=== PATIENT | male | born 1965 | race Caucasian/White ===

== ENCOUNTER 2019-03-27 06:45 | Inpatient (IN) ==
[2019-03-23 13:02] LABS: Basophils % 0.6 % (0.0-0.8); Eosinophils # 0.1 10*3/uL (0.0-0.87); Eosinophils % 1.9 % (0.00-10.9); Hematocrit 38.3 VOL% (42.0-52.0); Hemoglobin 13.2 GM/DL (14.0-18.0); Immature Granulocytes % 0.4 %; Immature Granulocytes Absolute 0.03 #; Lymphocytes # 2.3 10*3/uL (1.4-4.0); Lymphocytes % 32.4 % (21.2-54.2); Mean Corpuscular HGB Conc 34.5 GM/DL (32-36); Mean Corpuscular Volume 88.9 FL (87-102); Mean Platelet Volume 9.5 FL (9.6-12.0); Monocytes % 9.8 % (1.7-12.7); Neutrophils % 54.9 % (38.7-73.9); Platelet Count 235 T/CUMM (130-400); Red Blood Count 4.31 MC/CUMM (3.8-5.5); Red Cell Distribution Width 11.8 % (9.3-17.3)
[2019-03-23 13:15] LABS: Calcium 9.5 MG/DL (8.5-10.1); Osmolality,Calculated 288.1 MOS/KG (273-304)
[2019-03-23 13:16] LABS: INR 0.9; PT Patient Result 9.7 SECS; Partial Thromboplastin Time 26.6 SECS (0-40)
[~2019-03-27 06:45] MED LIST: DIAZEPAM 5 MG TABLET PO ONE; FAMOTIDINE 20 MG TABLET PO ONE
[2019-03-27] MEDS ORDERED: ceFAZolin 1,000 MG in SYRINGE 1 EACH IV ONE (08:00)
[2019-03-27] MEDS ORDERED: DIAZEPAM 5 MG TABLET ONE (08:02)
[2019-03-27] MEDS ORDERED: ceFAZolin 1,000 MG VIAL ONE (08:02)
[2019-03-27] MEDS ORDERED: FAMOTIDINE 20 MG TABLET ONE (08:02)
[2019-03-27] MEDS ORDERED: ROPIVACAINE 0.5% 30 ML VIAL ONE (08:05)
[2019-03-27] MEDS ORDERED: HEPARIN/NACL 0.9% 2 UNITS/ML 500 ML IV ONE (08:41)
[2019-03-27] MEDS ORDERED: PHENYLEPHRINE DRIP 20 MG/250 ML PREMIX IV ONE (08:41)
[2019-03-27] MEDS ORDERED: NITROGLYCERIN DRIP 50 MG/250 ML BOTTLE IV ONE (08:41)
[2019-03-27] MEDS ORDERED: HEPARIN 5,000 UNIT/1 ML VIAL ONE (08:57)
[2019-03-27] MEDS ORDERED: TISSUE ADHESIVE 1 EACH APPLICATOR TOP ONE (08:57)
[2019-03-27] MEDS ORDERED: LIDOCAINE 1% 20 ML VIAL ONE (08:57)
[2019-03-27] MEDS ORDERED: LACTATED RINGERS 1,000 ML IV SCH (09:00)
[2019-03-27] MEDS ORDERED: PROMETHAZINE 25 MG/1 ML VIAL IM PRN (11:08)
[2019-03-27] MEDS ORDERED: ONDANSETRON 4 MG/2 ML VIAL IV PRN (11:08)
[2019-03-27] MEDS ORDERED: HYDROmorphone 2 MG/1 ML VIAL IV PRN ×2 (11:08)
[2019-03-27] MEDS ORDERED: DEXTROSE 50% 25 GM/50 ML VIAL IV PRN (11:08)
[2019-03-27] MEDS ORDERED: GLUCAGON 1 MG VIAL IM PRN (11:08)
[2019-03-27] MEDS ORDERED: NALOXONE 0.4 MG/ML VIAL IV PRN (11:08)
[2019-03-27] MEDS ORDERED: oxyCODONE/ACETAMINOPHEN 5-325 MG TABLET PO PRN ×2 (11:08)
[2019-03-27] MEDS ORDERED: PROPOFOL 200 MG/20 ML VIAL IV ONE (11:28)
[2019-03-27] MEDS ORDERED: HEPARIN 10,000 UNIT/10 ML VIAL ONE (11:28)
[2019-03-27] MEDS ORDERED: ROCURONIUM 100 MG/10 ML VIAL IV ONE (11:29)
[2019-03-27] MEDS ORDERED: NEOSTIGMINE 10 MG/10 ML VIAL ONE (11:29)
[2019-03-27] MEDS ORDERED: GLYCOPYRROLATE 0.4 MG/2 ML VIAL ONE (11:29)
[2019-03-27] MEDS ORDERED: PROTAMINE SULFATE 50 MG/5 ML VIAL IV ONE (11:29)
[2019-03-27] MEDS ORDERED: LACTATED RINGERS 1,000 ML IV ONE (11:29)
[2019-03-27] MEDS ORDERED: SUCCINYLCHOLINE 200 MG/10 ML VIAL ONE (11:29)
[2019-03-27] MEDS ORDERED: fentaNYL 100 MCG/2 ML VIAL ONE (11:29)
[2019-03-27] MEDS ORDERED: ePHEDrine 50 MG/ML AMP ONE (11:29)
[2019-03-27] MEDS ORDERED: SODIUM CHLORIDE 0.9% 1,000 ML IV ONE (11:29)
[2019-03-27] MEDS ORDERED: ONDANSETRON 4 MG/2 ML VIAL ONE (11:29)
[2019-03-27] MEDS ORDERED: INSULIN REGULAR 100 UNIT/ML SUBCUT SCH (11:30)
[2019-03-27] MEDS ORDERED: PHENYLEPHRINE DRIP 40 MG/250 ML PREMIX IV SCH (11:30)
[2019-03-27] MEDS ORDERED: NITROPRUSSIDE 100 MG in DEXTROSE 5% 250 ML IV SCH (11:30)
[2019-03-27] MEDS: LACTATED RINGERS 1,000 ML IV SCH ×2 (13:41→21:30)
[2019-03-27] MEDS ORDERED: ROSUVASTATIN 20 MG TABLET PO SCH (21:00)
[2019-03-27] MEDS ORDERED: PANTOPRAZOLE 40 MG TABLET PO SCH (21:00)
[2019-03-27] MEDS ORDERED: CLOPIDOGREL 75 MG TABLET PO SCH (21:00)
[2019-03-27] MEDS ORDERED: ASPIRIN EC 81 MG TABLET PO SCH (21:00)
[2019-03-27] MEDS ORDERED: NEBIVOLOL 5 MG TABLET PO SCH (21:00)
[2019-03-27] MEDS ORDERED: FLUTICASONE 50 MCG NASAL SPRAY 16 GM BOTTLE BOTH NARES SCH (21:00)
[2019-03-28] MEDS: LACTATED RINGERS 1,000 ML IV SCH ×2 (03:56→09:13)
[2019-03-28] MEDS ORDERED: CLOPIDOGREL 75 MG TABLET PO SCH (09:00)
[2019-03-28] MEDS ORDERED: ASPIRIN EC 81 MG TABLET PO SCH (09:00)
[2019-03-28 16:08] VITALS: BP 123/68
== END 2019-03-28 16:49 | disposition home or self-care (01) | DRG 39 ==
LOC: N.PREADM 06:45 → N.SDSINP 06:45 → N.ICU 12:42 → EDSTATUS 14:15 → N.4E 03-28 09:40
PROVIDERS: ADMIT Surgery; ATTEND Surgery